=== PATIENT | female | born 2000 | race American Indian/Alaskan Native ===

== ENCOUNTER 2021-01-20 17:11 | Emergency (ER) | payer SELFPAY ==
[2021-01-20 20:29] VITALS: BP 165/89
--- NOTE | 2021-01-20 22:48 | Emergency Department Report ---
ED Laceration HPI - HPI Chief Complaint: Laceration/Recheck/Suture Stated Complaint: CUT ON HEAD Time Seen by Provider: 01/20/21 22:16 Occurred When: Today Location: Head Severity: mild, moderate Tetanus Status: Up to Date Laceration Symptoms: Yes Pain, No Foreign Body Sensation, No Numbness, No Weakness Other History: 20-year-old female was at work today try to get something off of a shelf while she was talking in a camper fell down striking her on the forehead resulting in a laceration and bleeding she presents emergency department seeking treatment of her wound. Reports no loss of consciousness, no presyncope, no blurred vision, no no headache, no nausea, no vomiting ED Review of Systems ROS: Stated complaint: CUT ON HEAD Other details as noted in HPI Comment: All other systems reviewed and negative ED Past Medical Hx - Past Medical History Previous Medical History?: No - Surgical History Past Surgical History?: No Additional Surgical History: TUBES IN EARS. ADENOIDS REMOVED - Social History Smoking Status: Never Smoker - Medications Home Medications: Home Medications Medication Instructions Recorded Confirmed Last Taken Type Hydrocortisone 2.5% [Hytone 2.5% 1 applicatio TP TID #1 tube 01/26/15 Unknown Rx CREAM] Loratadine (Nf) [Claritin] 10 mg PO DAILY #30 tablet 01/26/15 Unknown Rx predniSONE [Deltasone] 20 mg PO QDAY #5 tab 01/26/15 Unknown Rx Laceration Physical Exam - Exam General: Vital signs noted. No distress. Alert and acting appropriately. Wound Length (cm): 2 Laceration Location: Head Full Body Front + Back: 1 - 2.5 cm linear laceration Laceration Exam: Yes Normal Distal CMS, No Foreign Body, No Exposed Tendon, Vessel, or Nerve, No Tendon Injury ED Course Vital Signs 01/20/21 20:27 Temperature 98.1 F Pulse Rate 63 Respiratory 16 Rate Blood Pressure 165/89 O2 Sat by Pulse 99 Oximetry - Laceration /Wound Repair Head Wound Location: head Wound Length (cm): 2 Wound's Depth, Shape: linear Irrigated w/ Saline (ccs): 20 Betadine Prep?: Yes Wound Debrided: minimal Wound Repaired With: Dermabond Layer Closure?: No Sterile Dressing Applied?: No ED Medical Decision Making - Medical Decision Making Patient had laceration repaired in the emergency department after copious irrigation. At the at the exploration of the wound there was no evidence of any retained foreign body, no evidence of any underlying fracturel. Tetanus shot was reportedly up-to-date. We will defer antibiotics at this present time given the location, the event time, and the patient without surrounding signs of infection. Disposition will discharge patient he was given strict wound return precautions and instructions to follow-up with her primary care within 3 to 5 days for wound reevaluation and going to have the Dermabond wound reevaluated Critical care attestation.: If time is entered above; I have spent that time in minutes in the direct care of this critically ill patient, excluding procedure time. ED Disposition Clinical Impression: Forehead laceration Disposition: [id number] TO HOME OR SELFCARE Is pt being admited?: No Does the pt Need Aspirin: No Condition: Stable Instructions: Laceration Care, Adult, Sutures, [place], or Adhesive Wound Closure Additional Instructions: Patient emergency department today for laceration to your forehead which was repaired by tissue adhesive for the. Please keep area clean and dry and adhere to the management as stated in the associated patient discharge instructions. Please have wound reevaluated in 3 to 5days. Referrals: BRIANNA FIGUEROA MD [Staff Physician] - 3-5 Days
== END 2021-01-20 23:55 | disposition home or self-care (01) ==
LOC: ED 17:11
DX: S01.81XA Laceration without foreign body of other part of head, initial encounter (principal); Z79.899 Other long term (current) drug therapy; X58.XXXA Exposure to other specified factors, initial encounter; Y93.89 Activity, other specified; Y92.89 Other specified places as the place of occurrence of the external cause; Y99.8 Other external cause status